=== PATIENT | male | born 1970 | race Two or more races ===

== ENCOUNTER 2018-11-17 07:14 | Day surgery (SDC) | payer BC, OTHER ==
--- NOTE | 2018-10-28 13:29 | HP ---
AMENDED REPORT NOW INCLUDES DESIGNATED COSIGNER CC: Dr. Kranthi Russo * DATE OF ADMISSION: 11/17/2018. This patient is scheduled for Same Day Surgery admission by Dr. Tamez. DATE OF PREOPERATIVE HISTORY AND PHYSICAL EXAMINATION: Saturday, October 27, 2018. ATTENDING SURGEON: Dr. Kranthi Tamez * (dictated by Neelam Burk NP). CHIEF COMPLAINT: Right inguinal hernia. HISTORY OF PRESENT ILLNESS: The patient is a 48-year-old male referred to Dr. Tamez by Dr. Russo for evaluation of a right inguinal hernia. The patient noticed a right groin bulge in the shower in August 2018. He denies any pain. He denies any signs or symptoms to suggest incarceration or strangulation. He denies any change in urinary or bowel habits. He does have a family history of hernias. He is very active with cycling, but not having symptoms with strenuous activities. He has had no previous abdominal surgery. Dr. Tamez examined the patient and notes a reducible right inguinal hernia. Dr. Tamez discussed the findings with the patient and has recommended laparoscopic right inguinal hernia repair with mesh as a same day surgery procedure. He discussed the nature of hernias and also discussed the nature of the surgical procedure, the relevant risks and benefits, and today I reviewed the typical postoperative care and recovery. The patient has had a chance to ask questions and stated that he understands the information and is satisfied with the answers given to his questions. He will sign surgical consent on the day of surgery. PAST MEDICAL HISTORY: Significant for vitamin B12 deficiency, not related to anemia; seasonal depression; hyperlipidemia. PAST SURGICAL HISTORY: Vasectomy; wisdom teeth extraction. MEDICATIONS: 1. Sertraline 50 mg p.o. daily, typically in the morning. 2. Vitamin B12 injection 1,000 mcg intramuscularly every month. 3. Vitamin D3 supplement 2,000 international units daily in the winter. ALLERGIES: No known drug allergies. FAMILY HISTORY: Significant for hernias. No known anesthesia complications, bleeding tendencies, or clotting disorders. 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 He has never been a smoker. He currently drinks two alcoholic beverages per day and denies the use of substances. REVIEW OF SYSTEMS: Constitutional: No fevers, chills, excessive fatigue or weight loss. Endocrine: No diabetes or thyroid disease. Hematologic: No easy bruising or bleeding. No history of blood transfusions. Respiratory: No chronic cough. No dyspnea on exertion. Cardiovascular: No anginal chest pain or palpitations. Gastrointestinal: No nausea, vomiting, diarrhea, GI bleeding, or constipation. No change in bowel habits. Genitourinary: No dysuria. Musculoskeletal: No joint or back pain. Integumentary: No chronic rashes or skin changes. Neurologic: No headache or blurred vision. No areas of focal weakness or numbness. General: No previous anesthesia complications, no history of deep vein thrombosis or pulmonary embolism. No history of MRSA infections. PHYSICAL EXAMINATION GENERAL: The patient is a 48-year-old male, well-developed, well-nourished, in no acute distress. VITAL SIGNS: 69.75 inches, weight 159 pounds, body mass index 23. Blood pressure 128/78, pulse 72 and regular, respiratory rate 16, temperature 96.4 tympanic. SKIN: Warm, dry, intact. HEENT: Benign. NECK: Supple. No cervical lymphadenopathy. LUNGS: Breath sounds bilaterally clear and equal. HEART: Regular rate and rhythm. No murmurs or rubs appreciated. BACK: No CVA tenderness. ABDOMEN: Active bowel sounds, soft, nondistended, nontender throughout. No obvious masses, organomegaly, or evidence of umbilical hernia. Inguinal exam as done by Dr. Tamez is notable for a reducible right inguinal hernia, no palpable left inguinal hernia. EXTREMITIES: Warm without edema or skin ulceration. GENITALIA: Exam deferred. RECTAL: Exam deferred. NEUROLOGIC: Alert and oriented times three. Steady gait. IMPRESSION: Right inguinal hernia. PLAN: Same Day Surgery admission to Dr. Tamez service on Saturday, November 172017 for laparoscopic right inguinal hernia repair with mesh. VALARIE BURK NP [id number]/[facility] #: [id number] NERY
[~2018-11-17 07:14] MED LIST: Buffered Lidocaine 0.9% SYRIN* 5 ML/SYR SYRINGE INTRADERM ONE; Dexamethasone TAB* 4 MG PO ONE; DiMENhydriNATE IV* 50 MG/ML VIAL IV PUSH PRN; Famotidine IV* 10 MG/ML 2 ML (20 mg) IV ONE; Lactated Ringers 1000 ML Bag* 1,000 ML IV SCH; Morphine VIAL* 4 MG/ML VIAL (1 ml vial) IV PRN; Naloxone* 0.4 MG/ML 1 ML VIAL IV PRN; Ondansetron TAB* 4 MG PO ONE; PROCHLORPERAZINE INJ 5 MG/ML 2 ML VIAL IV PRN; fentaNYL* 50 MCG/ML 2 ML VIAL (100 MCG VIAL) IV PRN; oxyCODONE/Acetamin 5/325 MG* TAB PO PRN
[2018-11-17] MEDS ORDERED: ceFAZolin 2 GM PREMIX in ORs 2 GM/50 ML BAG IVPB ONE (08:02)
[2018-11-17] MEDS ORDERED: Ondansetron ODT TAB* 4 MG ONE (08:02)
[2018-11-17] MEDS ORDERED: Famotidine IV* 10 MG/ML 2 ML (20 mg) ONE (08:02)
[2018-11-17] MEDS ORDERED: Dexamethasone TAB* 4 MG ONE ×2 (08:02→08:21)
[2018-11-17] MEDS ORDERED: KETAMINE HCL* 50 MG/ML 10 ML VIAL ONE (08:09)
[2018-11-17] MEDS ORDERED: Atracurium* 10 MG/ML 10 ML VIAL ONE (08:09)
[2018-11-17] MEDS ORDERED: fentaNYL* 50 MCG/ML 2 ML VIAL (100 MCG VIAL) ONE (08:09)
[2018-11-17] MEDS ORDERED: Midazolam* 1 MG/ML 5 ML VIAL (5 MG) ONE (08:10)
[2018-11-17] MEDS ORDERED: Bupivacaine 0.25% W/EPI* 10 ML SDV ONE (08:54)
[2018-11-17] MEDS ORDERED: Ketorolac INJ* 30 MG/ML 1 ML VIAL ONE (09:27)
[2018-11-17] MEDS ORDERED: Glycopyrrolate IV* 0.2 MG/ML 1 ML VIAL ONE (09:27)
[2018-11-17] MEDS ORDERED: Propofol* 10 MG/ML 20 ML BTL ONE (09:27)
[2018-11-17] MEDS ORDERED: Lidocaine 2% PF * 5 ML VIAL ONE (09:27)
[2018-11-17] MEDS ORDERED: EPHEDrine (Pressors)* 50 MG/ML VIAL ONE (09:28)
--- NOTE | 2018-11-17 10:19 | OP ---
Operative Report - Blank - Operative Report Date of Operation: 11/17/18 Note: Brief Operative Note Preop Dx: Right inguinal hernia Postop Dx: same (direct) Procedure: Laparoscopic repair RIH w/ mesh (Bard 3D) Anesthesia: GET Surgeon: Dashawn [employer] Specialist: AISHA Warren Fluids: 1400 ml RL EBL: none Specimen: none Drains: none Findings: dictated
[2018-11-17 12:16] VITALS: BP 122/73
--- NOTE | 2018-11-17 23:39 | OP ---
CC: Chivo Russo MD * DATE OF OPERATION: 11/17/18 - [facility] DATE OF : 72 SURGEON: Kranthi Tamez MD DRESS CUTTER: AISHA Blake ANESTHESIOLOGIST: Dr. Giovani Whipple. ANESTHESIA: General endotracheal. PRE-OP DIAGNOSIS: Right inguinal hernia. POST-OP DIAGNOSIS: Direct right inguinal hernia. OPERATIVE PROCEDURE: Laparoscopic repair of right inguinal hernia with mesh. ESTIMATED BLOOD LOSS: None. IV FLUIDS: 1.4 L crystalloid. SPECIMEN: None. DRAINS: None. COMPLICATIONS: None. COUNTS: The instrument, needle, and sponge counts were correct. DESCRIPTION OF PROCEDURE: The patient was brought to the operating room and placed on the table supine. Sequential compression devices were placed on both lower extremities. General anesthesia was administered. Lazaro catheter was placed. He was positioned and padded appropriately. He was prepped and draped in the usual sterile fashion. He received appropriate intravenous antibiotics. A time-out was performed. Local anesthetic was then infiltrated into the skin and soft tissue prior to making each incision. A curvilinear infraumbilical incision was created and the subcutaneous tissues were divided. The anterior rectus fascia was incised transversely to the right. The underlying rectus muscle fibers were retracted laterally and a preperitoneal balloon dissector was positioned down to the pubic symphysis and insufflated under direct visualization to insufflate only the right side. This was then removed and replaced with a 12-mm blunt port. Carbon dioxide was then insufflated to a pressure of 12 mmHg. Under direct visualization, two 5-mm trocars were placed in the lower midline. Dissection then proceeded from the midline laterally, identifying the pubic symphysis, Yinka's ligament, and there was noted to be a direct inguinal hernia. This was slowly reduced. The inferior epigastric vessels were maintained anteriorly. The indirect space was noted to be without any hernia. The peritoneal sac was identified and it was dissected free both in the area of the retroperitoneum posteriorly and also to the lateral right side to the anterosuperior iliac spine. After completing the dissection, a Bard 3D Max large size mesh patch for the right side was placed into the peritoneal cavity and positioned to cover the direct, indirect and femoral spaces. The mesh was left in place. There was no fixation used and the space was desufflated under direct visualization. Subsequently, a peritoneoscopy was performed through the 12-mm port site after removing the port from the preperitoneal space and replacing it into the peritoneal space and insufflating the peritoneum to 15 mmHg with carbon dioxide. The inspection revealed excellent position of the mesh and no rent in the peritoneum. At this point, the carbon dioxide was released and the infraumbilical wound was closed with 0 Vicryl for the posterior sheath as well for the anterior sheath of the rectus. The skin incisions were closed with 4-0 Monocryl in subcuticular fashion. Steri-Strips were applied. The patient tolerated the procedure well, was extubated and transferred to the recovery room in a stable condition. [id number]/[facility] #: [id number] NERY
== END 2018-11-17 12:18 | disposition home or self-care (01) ==
LOC: OR 07:14
PROVIDERS: ATTEND Surgery
DX: K40.90 Unilateral inguinal hernia, without obstruction or gangrene, not specified as recurrent (principal); E53.8 Deficiency of other specified B group vitamins; E78.5 Hyperlipidemia, unspecified; F33.9 Major depressive disorder, recurrent, unspecified
CPT/HCPCS: A9270-GY; C1781; J0690; J1885; J2250; J2704; J3010; J8540